=== PATIENT | female | born 1965 | race Caucasian/White ===

== ENCOUNTER 2018-07-02 14:53 | Outpatient (CLI) | payer OTHER | END 2018-07-02 23:59 | disposition home or self-care (01) | LOC: CFH 14:53 | PROVIDERS: ATTEND Family Medicine | DX: Z12.31 Encounter for screening mammogram for malignant neoplasm of breast (principal) | CPT/HCPCS: 77067 ==

== ENCOUNTER → 2020-04-14 | Outpatient (CLI) | payer OTHER | END | disposition home or self-care (01) | LOC: CFH 14:59 | PROVIDERS: ATTEND Family Medicine | DX: Z12.31 Encounter for screening mammogram for malignant neoplasm of breast (principal) | CPT/HCPCS: 77063; 77067 ==